=== PATIENT | female | born 1970 | race Caucasian/White ===

== ENCOUNTER 2025-03-03 09:27 | Emergency (ER) | payer BC, SELFPAY ==
[2025-03-03 09:40] VITALS: BP 124/79
[2025-03-03 10:00] VITALS: BMI 30.6
[2025-03-03 10:10] LABS: % Basophils 0.7 % (0-2); % Eosinophils 1.7 % (0-6); % Immature Granulocytes 0.2 % (0-0.5); % Lymphocytes 39.4 % (20.5-51.1); % Monocytes 9.9 % (1.7-9.3); % Neutrophils 48.1 % (42.2-75.2); Absolute Eosinophils 0.1 10^3/uL (0-0.7); Absolute Lymphocytes 1.6 10^3/uL (1.2-3.4); Absolute Monocytes 0.4 10^3/uL (0.1-0.6); Absolute Neutrophils 1.9 10^3/uL (1.4-6.5); Hematocrit 38.4 % (37.0-47.0); Hemoglobin 13.6 g/dL (12.0-16.0); Mean Corp Hgb Conc. 35.4 g/dL (33.0-37.0); Mean Corpuscular Volume 90.4 fL (81.0-99.0); Mean Platelet Volume 9.5 fL (7.4-10.4); Nucleated Red Blood Cells % 0 %; Platelet Count 241 10^3/uL (130-400); Red Blood Cell Count 4.25 10^6/uL (4.20-5.40); Red Cell Dist. Width 11.6 % (11.5-14.5)
[2025-03-03 10:30] LABS: ALT (SGPT) 36 U/L (0-35); AST (SGOT) 26 U/L (14-36); Albumin 4.6 g/dl (3.5-5.0); Alkaline Phosphatase 67 U/L (38-126); Blood Urea Nitrogen 25 mg/dl (7-17); Calcium 10.4 mg/dl (8.4-10.2); Carbon Dioxide 32 mmol/L (22-30); Chloride 106 mmol/L (98-107); Estimated Creatinine Clearance 62 ml/min; Glucose 132 mg/dl (70-99); Lipase 128 U/L (23-300); Potassium 4.8 mmol/L (3.5-5.1); Sodium 145 mmol/L (135-145); Total Bilirubin 0.8 mg/dl (0.2-1.3); Total Protein 6.9 g/dl (6.3-8.2); eGFR > 60.00
[2025-03-03] MEDS: NSS 1000 IV (10:33)
[2025-03-03] MEDS: TORADOL 15 MG IV (10:33)
[2025-03-03 11:06] LABS: Urine Albumin 1+ (Neg - Trace); Urine Bilirubin Negative (Negative); Urine Character Clear (Clear); Urine Color Yellow; Urine Glucose Negative (Negative); Urine Ketone Negative (Negative); Urine Leukocyte Negative (Negative); Urine Nitrite Negative (Negative); Urine Occult Blood 4+ (Negative); Urine Specific Gravity 1.025 (<1.030); Urine Urobilinogen Negative (Neg - 1+)
[2025-03-03] MEDS: DILAUDID 0.5 MG IV ×2 (11:15→12:35)
[2025-03-03] MEDS: ZOFRAN 4 MG IV (11:15)
--- NOTE | 2025-03-03 12:22 | ED.GENMED ---
History of Present Illness
General
Chief Complaint: Flank Pain
Time Seen by Provider: 03/03/25 09:46
History of Present Illness
History of Present Illness:
54-year-old female presents the emergency department for evaluation of right flank pain for the past 2 days. Increasing in severity prompting her to come to the ER today. History of past kidney stones and states this feels similar. No fevers or
chills. Does have nausea and vomiting
Review of Systems
Review of Systems
Allergies reviewed?: Yes
All Other Systems: ROS reviewed and negative except as documented in HPI and ROS
Phy Exam
Physical Exam
Physical Exam:
GEN: Well appearing, NAD, WDWN
HEENT: Oral mucosa moist, no scleral icterus
Cardiac: Regular rate
Lung: No respiratory distress, no tachypnea
Abdomen: Soft, mild right lower quadrant tenderness, negative CVA tenderness bilaterally
MSK: No gross deformity or injuries
Skin: Good color, no pallor or jaundice, no rashes
Neuro: AO x3, moves all extremities freely
Psych: Calm, cooperative
Course
Orders/Labs/Results
Orders:
Orders
03/03/25 10:02
Complete Blood Count/With Diff Urgent
Comprehensive Metabolic Panel Urgent
Lipase Urgent
03/03/25 10:03
Urinalysis Reflex To Culture Urgent
Date Specimen was Collected: 03/03/25
Time Specimen was Collected: 10:03
Urine Microscopic Reflex Cult Urgent
03/03/25 10:22
0.9% Sodium Chloride 1000 ml [Nss] 1,000 ml IV BOLUS
Ketorolac [Toradol] 15 mg IV NOW STA
03/03/25 10:26
CT Abd/pel Without Iv Or Oral Urgent
Comment:
Reason For Exam: R flank pain
03/03/25 11:11
HYDROmorphone [Dilaudid] 0.5 mg IV NOW STA
Ondansetron Injectable [Zofran] 4 mg IV NOW STA
03/03/25 12:22
HYDROmorphone [Dilaudid] 0.5 mg IV NOW STA
Abnormal Lab Results
03/03/25 03/03/25
10:02 10:03
WBC 4.0 L 10^3/uL
(4.8-10.8)
MCH 32.0 H pg
(27.0-31.0)
Monocytes % 9.9 H %
(1.7-9.3)
Carbon Dioxide 32 H mmol/L
(22-30)
BUN 25 H mg/dl
(7-17)
Glucose 132 H mg/dl
(70-99)
Calcium 10.4 H mg/dl
(8.4-10.2)
ALT 36 H U/L
(0-35)
Ur Occult Blood Reflex 4+ A
(Negative)
Urine RBC 16-20 A /HPF
(0-2)
Urine Bacteria (Reflex) Few A
(Negative)
Urine Albumin (Reflex) 1+ A
(Neg - Trace)
03/03/25 10:02
03/03/25 10:02
Vital Signs
Initial and Last Documented VS:
Initial Vital Signs
Temp Pulse Resp BP Pulse Ox
98.2 F 71 16 124/79 98
03/03/25 09:40 03/03/25 09:40 03/03/25 09:40 03/03/25 09:40 03/03/25 09:40
Last Documented Vital Signs
Temp Pulse Resp BP Pulse Ox
98.2 F 67 16 122/57 97
03/03/25 09:40 03/03/25 12:32 03/03/25 12:32 03/03/25 12:32 03/03/25 12:32
MDM/Problems Addressed
MDM/Problems Addressed:
Imaging reveals a 3 mm distal UVJ stone, pain did improve with IV treatment measures in the ED. Discussed expectant management given small distal stone, ED return parameters discussed
*Critical Care Note
Total Time (30-74mins, 75-104mins- exclusive of procedures): Not Applicable
ED Attending Note
-
Portions of this chart may have been created with voice recognition software.� Occasional wrong word or��sound alike� substitutions may have occurred due to the inherent limitations of voice recognition software.
Discharge Plan
Departure
Patient Disposition: Home (Routine Discharge)
Date of Disposition: 03/03/25
Time of Disposition: 12:22
Patient with high blood pressure during this ER visit?: No
Discharge Problem:
Ureterolithiasis
Instructions: Kidney Stones (DC)
Prescriptions:
New
ketorolac 10 mg tablet
10 mg PO Q8H Qty: 15 0RF
Rx Instructions:
maximum total duration of 5 days from all oral, intranasal, or parenteral formulations
tamsulosin [Flomax] 0.4 mg capsule
0.4 mg PO HS Qty: 10 0RF
oxycodone 5 mg tablet
5 mg PO Q8H PRN (Reason: Pain) Qty: 12 0RF
Referrals:
Dannielle Martinez MD [Family Provider] -
Activity Restrictions/Additional Instructions:
Return if symptoms worsen
Interventions
Interventions:
*Risk Screen - Suicide Last Done: 03/03/25 09:40
*Neglect/Abuse Screening Last Done: 03/03/25 09:40
*Nursing Disposition Last Done: 03/03/25 13:01
XC-Lvvpms-Zeqksshyel Assessment Last Done: 03/03/25 10:01
ED-Female Genitourinary Assessment Last Done: 03/03/25 10:01
Discharge Date and Time
Discharge Date/Time: 03/03/25 13:01
Print Language: CROATIAN
[2025-03-03 12:32] VITALS: BP 122/57
[2025-03-03 12:55] LABS: Urine Mucus Few
[2025-03-03 12:56] LABS: Urine Bacteria Few (Negative); Urine Red Blood Cell 16-20 /HPF (0-2); Urine White Cell 0-2 /HPF (0-5)
== END 2025-03-03 13:01 | disposition home or self-care (01) ==
LOC: EMR 09:27
PROVIDERS: EMERGENCY PHYSICIAN Emergency Medicine; FAMILY PHYSICIAN Internal Medicine
DX: N20.1 Calculus of ureter (principal)
CPT/HCPCS: 99284; 96374; 96375; 96376; 96361; 74176; 80053; 81003; 81015; 83690; 85025

== ENCOUNTER 2025-03-06 06:18 | Day surgery (SDC) | payer BC, SELFPAY ==
[2025-03-06] VITALS (7 sets, daily range): BP systolic 102–140; BP diastolic 73–96; BMI 30.3
[2025-03-06] MEDS: NORMOSOL-R/PLASMALYTE-A 1000 IV (10:52)
[2025-03-06] MEDS: EMEND 40 MG PO (11:06)
[2025-03-06] MEDS: DETROL LA 4 MG PO (13:39)
[2025-03-06] MEDS: Pyridium 200 MG PO (13:39)
== END 2025-03-06 14:30 | disposition home or self-care (01) ==
LOC: SDS 06:18
PROVIDERS: ATTENDING PHYSICIAN Specialist
DX: N20.1 Calculus of ureter (principal)
CPT/HCPCS: 52352; 52332; 74018; 76000; 82365; 93005; C1758; C1894; C2617